=== PATIENT | male | born 1995 | race Hispanic/Latino ===

== ENCOUNTER 2023-01-12 01:40 | Day surgery (SDC) | payer SELFPAY ==
[2023-01-12 02:25] LABS: Bilirubin Negative (Negative); Blood, Urine Negative (Negative); Clarity Turbid (Clear); Glucose, Urine (Dipstick) Normal (Negative); Ketone, Urine Negative (Negative); Leukocyte Negative Leu/uL (Negative); Nitrite Negative (Negative); Protein, Urine (Dipstick) 20 mg/dL (Neg-Trace); Specific Gravity, Urine 1.023 (1.002-1.036); Urobilinogen Normal mg/dL (Less than 2)
[2023-01-12 02:55] LABS: #Monocytes 0.4 thou/uL (0.11-0.59); #Neutrophils 11.4 thou/uL (1.40-6.50); %Basophils 0.3 % (0.0-1.0); %Eosinophils 0.1 % (0.0-10.0); %Lymphocytes 9.4 % (21.0-51.0); %Monocytes 3.3 % (0.0-10.0); %Neutrophils 86.4 % (42.0-75.0); Mean Corpuscular HGB CONC 34.2 g/dL (32.0-36.0); Mean Corpuscular Hemoglobin 32.9 pg (27.0-31.0); Mean Corpuscular Volume 96.3 fl (78.0-98.0); Mean Platelet Volume 8.7 fL (7.4-10.4); Platelet Count 254 10x3/uL (130-400); RBC Distribution Width 12.8 % (11.5-14.5); Red Blood Cell (RBC) Count 4.56 mill/uL (4.70-6.10); White Blood Cell (WBC) Count 13.2 10x3/uL (4.8-10.8)
[2023-01-12] MEDS ORDERED: Ondansetron PF 4 MG/2 ML Vial ONE ×2 (03:22→10:20)
[2023-01-12] MEDS ORDERED: Ketorolac Tromethamine 30 MG/ML VIAL ONE (03:22)
[2023-01-12 03:27] LABS: AST (SGOT) 23 U/L (5-34); Bilirubin, Total 0.5 mg/dL (0.2-1.2); Calcium 8.9 mg/dL (7.8-10.44); Chloride 103 mmol/L (98-107); Potassium 3.7 mmol/L (3.5-5.1); Sodium 138 mmol/L (136-145)
[2023-01-12 03:39] LABS: ALT (SGPT) 33 U/L (8-55); Albumin 4.5 g/dL (3.5-5.0); Alkaline Phosphatase 106 U/L (40-110); Anion Gap 15 mmol/L (10-20); BUN (Urea Nitrogen) 15 mg/dL (8.9-20.6); Calc. Creatinine Clearance 0 mL/min (70-130); Carbon Dioxide 23 mmol/L (22-29); Estimated GFR 101; Glucose 132 mg/dL (70-105); Lipase 29 U/L (8-78); Protein, Total 7.5 g/dL (6.0-8.3)
[2023-01-12] MEDS ORDERED: Piperacillin/Tazobactam 3.375 GM VIAL ONE (06:00)
[2023-01-12] MEDS ORDERED: Ondansetron PF 4 MG/2 ML Vial IVP PRN (06:00)
[2023-01-12] MEDS ORDERED: Piperacillin/Tazobactam 3.375 GM in Sodium Chloride 0.9% 100 ML IVPB SCH ×2 (06:00→12:00)
[2023-01-12] MEDS ORDERED: Sodium Chloride 0.9% 1,000 ML IV SCH (06:00)
[2023-01-12] MEDS ORDERED: Ondansetron ODT 4 MG TAB SL PRN (06:00)
[2023-01-12] MEDS ORDERED: Bupivacaine HCl 0.5%/Epinephrine 1:200,000/PF 30 ml Vial ONE (10:00)
[2023-01-12] MEDS ORDERED: Lidocaine 1% (PF) 30 ML VIAL ONE (10:00)
[2023-01-12] MEDS ORDERED: Iopamidol 370 76% 100 ML VIAL ONE (10:01)
[2023-01-12] MEDS ORDERED: SUGAMMADEX SODIUM 200 MG/2 ML VIAL ONE (10:09)
[2023-01-12] MEDS ORDERED: fentaNYL PF 100 MCG/2 ML SYRINGE ONE (10:09)
[2023-01-12] MEDS ORDERED: fentaNYL 50 mcg/mL 1 mL Vial ONE (10:10)
[2023-01-12] MEDS ORDERED: Midazolam HCl 2 mg/2 ml Vial ONE (10:17)
[2023-01-12] MEDS ORDERED: Esmolol 100 MG/10 ML VIAL ONE (10:20)
[2023-01-12] MEDS ORDERED: Dexamethasone 20 MG/5 ML VIAL ONE (10:20)
[2023-01-12] MEDS ORDERED: Lidocaine 1% PF 5 ML VIAL ONE (10:20)
[2023-01-12] MEDS ORDERED: PROPOFOL 200 MG/20 ML VIAL ONE (10:20)
[2023-01-12] MEDS ORDERED: Rocuronium Bromide 10 MG/ML (10ML VIAL) ONE (10:20)
[2023-01-12] MEDS ORDERED: HYDROcodone/Acetaminophen 5/325 mg Tablet ONE (13:08)
[2023-01-12] MEDS ORDERED: Morphine 2 MG/ML VIAL ONE (13:55)
== END 2023-01-12 15:39 | disposition home or self-care (01) ==
LOC: ERS 01:40 → SDC 08:27
PROVIDERS: ATTEND Surgery
PROC: 0DTJ4ZZ Resection of Appendix, Percutaneous Endoscopic Approach (ICD-10-PCS; principal; 2023-01-12)
DX: K35.30 Acute appendicitis with localized peritonitis, without perforation or gangrene (principal)
CPT/HCPCS: 74177; 80053; 81003; 83690; 85025; 87086; 88304; 96365; 96375; A4649; C1776; J1100; J1885; J2001; J2250; J2272; J2405; J2543; J2704; J3010; J7050; Q9967